=== PATIENT | male | born 1990 | race African-American/Black ===

== ENCOUNTER 2021-11-16 21:32 | Emergency (ER) | payer OTHER ==
[~2021-11-16 21:32] MED LIST: MEDROL 4MG DOSEP4 MG PO
== END 2021-11-17 00:16 | disposition home or self-care (01) ==
LOC: FER 21:32
DX: S33.5XXA Sprain of ligaments of lumbar spine, initial encounter (principal); J45.909 Unspecified asthma, uncomplicated; Z79.899 Other long term (current) drug therapy; V49.40XA Driver injured in collision with unspecified motor vehicles in traffic accident, initial encounter
CPT/HCPCS: 72100